=== PATIENT | male | born 1950 | race Two or more races ===

== ENCOUNTER 2020-02-06 10:10 | Inpatient (IN) | payer MEDICARE, OTHER ==
[~2020-02-06] VITALS: Ht 188 cm; Wt 83.1 kg
[2020-02-06] MEDS ORDERED: SODIUM CHLORIDE 0.9% 500 ML IV ONE (10:49)
[2020-02-06] MEDS ORDERED: AZITHROMYCIN 500MG/ 250ML 250 ML IV ONE (11:00)
[2020-02-06] MEDS ORDERED: cefTRIAXone 1GM/50ML D5W 50 ML IV ONE (11:00)
[2020-02-06 11:34] LABS: Basophils # (auto) 0 10 ^3/uL (0-0.2); Basophils % (auto) 0.1 % (0.0-2.0); Eosinophils # (auto) 0 10 ^3/uL (0-0.8); Hematocrit 44.6 % (41.0-53.0); Hemoglobin 15.2 g/dL (13.5-17.5); Lymphocytes # (auto) 1.6 10 ^3/uL (0.4-5.4); Lymphocytes % (auto) 12.1 % (10.0-50.0); Mean Corpuscular Hgb Conc. 34.2 g/dL (32.0-36.0); Mean Corpuscular Volume 87.8 fL (80.0-100.0); Monocytes # (auto) 1.4 10 ^3/uL (0-1.3); Monocytes % (auto) 10.9 % (0.0-12.0); Neutrophils # (auto) 10.2 10 ^3/uL (1.6-8.6); Neutrophils % (auto) 76.9 % (37.0-80.0); Platelet Count (auto) 144 10^3/uL (140-450); Red Blood Cells 5.08 10^6/uL (4.5-5.90); White Blood Cell 13.3 10^3/uL (4.4-10.8)
[2020-02-06 12:00] LABS: Albumin 2.8 g/dL (3.4-5.0); Calcium 11.3 mg/dL (8.5-10.1); Potassium 3.7 mmol/L (3.5-5.1)
[2020-02-06] MEDS ORDERED: ASCORBIC ACID 500 MG TAB PO ONE (12:00)
[2020-02-06] MEDS ORDERED: LORazepam 2MG/ML-1ML VIAL IV ONE (12:00)
[2020-02-06] MEDS ORDERED: ZINC SULFATE 220mg CAP or TAB PO ONE (12:00)
[2020-02-06 12:03] LABS: BUN/Creatinine Ratio 18.1; Bilirubin, Total 1.4 mg/dL (0.2-1.0); INR 1.29 (0.9-1.15); Partial Thromboplastin Time 33.6 sec (23.64-32.05); Total Protein 7.9 g/dL (6.4-8.2)
[2020-02-06] MEDS ORDERED: MORPHINE SULF INJ 2 MG/ML SYRINGE 1ML IV PRN (13:45)
[2020-02-06] MEDS ORDERED: NITROGLYCERIN 0.4 MG SL TAB SL PRN (13:45)
[2020-02-06] MEDS ORDERED: ACETAMINOPHEN 500 MG TAB PO PRN (14:00)
[2020-02-06] MEDS ORDERED: ALBUTEROL SULF 2.5 MG/0.5ML(0.5%) NEB SOLN NEB PRN (14:00)
[2020-02-06] MEDS ORDERED: PROMETHAZINE HCL 25 MG/ML 1ML IV PRN (14:00)
[2020-02-06] MEDS ORDERED: LORazepam 0.5 MG TAB PO PRN (14:00)
[2020-02-06] MEDS ORDERED: TEMAZEPAM 15 MG CAP PO PRN (14:00)
[2020-02-06] MEDS: SODIUM CHLORIDE 0.9% 1,000 ML IV SCH (14:21)
[2020-02-06 14:33] LABS: Urine Bacteria NONE SEEN /hpf (None Seen); Urine Blood Negative /uL (Negative); Urine Hyaline Cast FEW /lpf (0 - 2); Urine Mucus FEW (None Seen); Urine Specific Gravity 1.021 (1.001-1.035); Urine WBC 2 /hpf (0 - 3)
[2020-02-06] MEDS ORDERED: FUROSEMIDE 40 MG/4 ML VIAL IV ONE (15:15)
[2020-02-06] MEDS ORDERED: FUROSEMIDE 20 MG/2 ML VIAL ONE (15:16)
[2020-02-06 16:00] VITALS: BP 120/68
[2020-02-06 16:34] LABS: Magnesium 2.2 mg/dL (1.6-2.6)
[2020-02-06 17:00] VITALS: BP 116/86
[2020-02-06 18:00] VITALS: BP 105/66
[2020-02-06 20:00] VITALS: BP 110/56
[2020-02-06] MEDS ORDERED: FAMOTIDINE 20 MG TAB PO SCH (22:00)
[2020-02-06] MEDS ORDERED: APIXABAN 5 MG TAB PO SCH (22:00)
[2020-02-07] VITALS: BP 138/101
[2020-02-07] MEDS: SODIUM CHLORIDE 0.9% 1,000 ML IV SCH (03:12)
[2020-02-07 04:00] VITALS: BP 100/67
[2020-02-07] MEDS ORDERED: FUROSEMIDE 20 MG/2 ML VIAL IV SCH (06:00)
[2020-02-07 07:30] VITALS: BP 103/64
[2020-02-07] MEDS ORDERED: cefTRIAXone 1GM/50ML D5W 50 ML IV SCH (09:00)
[2020-02-07] MEDS ORDERED: ENOXAPARIN SOD 40 MG/0.4 ML SYRINGE SC SCH (10:00)
[2020-02-07] MEDS ORDERED: AZITHROMYCIN 500MG/ 250ML 250 ML IV SCH (10:00)
[2020-02-07] MEDS ORDERED: ZINC SULFATE 220mg CAP or TAB PO SCH (10:00)
[2020-02-07] MEDS ORDERED: FUROSEMIDE 20 MG/2 ML VIAL IV ONE (10:15)
[2020-02-07] MEDS ORDERED: ASPirin 81 mg TAB PO ONE (10:15)
[2020-02-07 11:05] LABS: Calcium 10.5 mg/dL (8.5-10.1); Potassium 3.4 mmol/L (3.5-5.1)
[2020-02-07 11:07] LABS: BUN/Creatinine Ratio 22.3
[2020-02-07] MEDS: HEPARIN DRIP/D5W 100UNITS/ML 250 ML IV SCH (11:08)
[2020-02-07 11:27] LABS: Basophils # (auto) 0 10 ^3/uL (0-0.2); Basophils % (auto) 0.2 % (0.0-2.0); Eosinophils # (auto) 0 10 ^3/uL (0-0.8); Eosinophils % (auto) 0.4 % (0.0-7.0); Hematocrit 41.5 % (41.0-53.0); Hemoglobin 14.2 g/dL (13.5-17.5); Lymphocytes # (auto) 1.5 10 ^3/uL (0.4-5.4); Mean Corpuscular Hgb Conc. 34.3 g/dL (32.0-36.0); Mean Corpuscular Volume 87.4 fL (80.0-100.0); Monocytes # (auto) 1.8 10 ^3/uL (0-1.3); Monocytes % (auto) 17.7 % (0.0-12.0); Neutrophils # (auto) 6.9 10 ^3/uL (1.6-8.6); Neutrophils % (auto) 66.7 % (37.0-80.0); Nucleated Red Blood Cells % 0.2 %; Platelet Count (auto) 130 10^3/uL (140-450); Red Blood Cells 4.75 10^6/uL (4.5-5.90); Red Cell Distribution Width 14.9 % (11.8-14.3); White Blood Cell 10.3 10^3/uL (4.4-10.8)
[2020-02-07 11:29] LABS: INR 1.25 (0.9-1.15); Partial Thromboplastin Time 36.5 sec (23.64-32.05)
[2020-02-07 12:00] VITALS: BP 135/79
[2020-02-07] MEDS ORDERED: POTASSIUM CHL 20 Meq TABLET PO ONE (15:15)
[2020-02-07 16:00] VITALS: BP 135/86
[2020-02-07 16:47] LABS: Urine Bacteria FEW /hpf (None Seen); Urine Blood Negative /uL (Negative); Urine Hyaline Cast FEW /lpf (0 - 2); Urine Specific Gravity 1.006 (1.001-1.035); Urine WBC <1 /hpf (0 - 3)
[2020-02-07 16:53] LABS: Protein, Urine 8.4 mg/dL (0.0-11.9)
[2020-02-07 18:20] LABS: INR 1.3 (0.9-1.15); Partial Thromboplastin Time 50.9 sec (23.64-32.05)
[2020-02-07 20:00] VITALS: BP 109/76
[2020-02-07] MEDS: ATORVASTATIN 20 MG TAB PO SCH (23:06)
[2020-02-07 23:52] LABS: INR 1.3 (0.9-1.15); Partial Thromboplastin Time 61.8 sec (23.64-32.05)
[2020-02-08] VITALS: BP 114/70
[2020-02-08] MEDS: HEPARIN DRIP/D5W 100UNITS/ML 250 ML IV SCH ×2 (03:59→18:38)
[2020-02-08 04:00] VITALS: BP 123/76
[2020-02-08 06:16] LABS: Basophils # (auto) 0.1 10 ^3/uL (0-0.2); Basophils % (auto) 0.7 % (0.0-2.0); Eosinophils # (auto) 0.2 10 ^3/uL (0-0.8); Eosinophils % (auto) 1.4 % (0.0-7.0); Hemoglobin 15.7 g/dL (13.5-17.5); Lymphocytes # (auto) 2.5 10 ^3/uL (0.4-5.4); Lymphocytes % (auto) 21.4 % (10.0-50.0); Mean Corpuscular Hemoglobin 30.3 pg (28.0-32.0); Mean Corpuscular Hgb Conc. 34.7 g/dL (32.0-36.0); Mean Corpuscular Volume 87.2 fL (80.0-100.0); Monocytes # (auto) 2.1 10 ^3/uL (0-1.3); Monocytes % (auto) 17.9 % (0.0-12.0); Neutrophils # (auto) 6.8 10 ^3/uL (1.6-8.6); Neutrophils % (auto) 58.6 % (37.0-80.0); Nucleated Red Blood Cells % 0.1 %; Platelet Count (auto) 178 10^3/uL (140-450); Red Blood Cells 5.16 10^6/uL (4.5-5.90); White Blood Cell 11.6 10^3/uL (4.4-10.8)
[2020-02-08 06:39] LABS: Albumin 2.8 g/dL (3.4-5.0); Calcium 9.9 mg/dL (8.5-10.1); Potassium 3.2 mmol/L (3.5-5.1)
[2020-02-08 06:43] LABS: BUN/Creatinine Ratio 19.3; Bilirubin, Direct 0.4 mg/dL (0-0.2); Bilirubin, Total 1.1 mg/dL (0.2-1.0); Total Protein 7.5 g/dL (6.4-8.2); Uric Acid 8.8 mg/dL (3.5-7.2)
[2020-02-08 07:51] VITALS: BP 108/66
[2020-02-08 08:24] LABS: INR 1.28 (0.9-1.15)
[2020-02-08] MEDS: cefTRIAXone 1GM/50ML D5W 50 ML IV SCH (08:40)
[2020-02-08 08:58] LABS: INR 1.28 (0.9-1.15); Partial Thromboplastin Time 59.8 sec (23.64-32.05)
[2020-02-08] MEDS: AZITHROMYCIN 500MG/ 250ML 250 ML IV SCH (09:32)
[2020-02-08] MEDS: ASPirin 81 mg TAB PO SCH (09:32)
[2020-02-08] MEDS ORDERED: POTASSIUM EFFERVESENT TAB 25 MEQ PO ONE (09:45)
[2020-02-08] MEDS ORDERED: ENOXAPARIN SOD 80 MG/0.8ML SYRINGE SC SCH (10:00)
[2020-02-08] MEDS ORDERED: FUROSEMIDE 20 MG/2 ML VIAL IV SCH (10:00)
[2020-02-08 12:00] VITALS: BP 116/80
[2020-02-08] MEDS: Ensure HIGH Protein Chocolate 8oz Bottle PO SCH ×2 (12:00→18:00)
[2020-02-08 15:58] VITALS: BP 126/80
[2020-02-08 18:34] LABS: BUN/Creatinine Ratio 22.7; Calcium 9.8 mg/dL (8.5-10.1); Potassium 3.5 mmol/L (3.5-5.1)
[2020-02-08 20:00] VITALS: BP 110/72
[2020-02-08] MEDS: ATORVASTATIN 20 MG TAB PO SCH (22:03)
[2020-02-09] VITALS: BP 96/55
[2020-02-09 04:00] VITALS: BP 137/87
[2020-02-09 04:00] LABS: Albumin 2.5 g/dL (3.4-5.0); Calcium 9.8 mg/dL (8.5-10.1); Potassium 3.3 mmol/L (3.5-5.1)
[2020-02-09 04:07] LABS: BUN/Creatinine Ratio 19.2; Bilirubin, Total 0.8 mg/dL (0.2-1.0); Total Protein 6.9 g/dL (6.4-8.2)
[2020-02-09 04:08] LABS: INR 1.25 (0.9-1.15)
[2020-02-09 04:14] LABS: Hematocrit 43.1 % (41.0-53.0); Hemoglobin 14.4 g/dL (13.5-17.5); Mean Corpuscular Hemoglobin 29.5 pg (28.0-32.0); Mean Corpuscular Hgb Conc. 33.3 g/dL (32.0-36.0); Mean Corpuscular Volume 88.5 fL (80.0-100.0); Platelet Count (auto) 176 10^3/uL (140-450); Red Blood Cells 4.87 10^6/uL (4.5-5.90); Red Cell Distribution Width 14.9 % (11.8-14.3); White Blood Cell 9.1 10^3/uL (4.4-10.8)
[2020-02-09 04:16] LABS: Basophils % (manual) 0 (0.0-2.0); Blast Cells 0; Metamyelocytes % 0; Myelocytes % 0; Promyelocytes % 0; Reactive Lymphocytes 0
[2020-02-09 04:19] LABS: Partial Thromboplastin Time 85.4 sec (23.64-32.05)
[2020-02-09 05:57] LABS: Band Neutrophils % (manual) 2; Eosinophils % (manual) 5 (0-7); Lymphocytes % (manual) 24 (10.0-50.0); Monocytes % (manual) 13 (0-12)
[2020-02-09 07:45] VITALS: BP 122/77
[2020-02-09] MEDS ORDERED: POTASSIUM CHL 20 Meq TABLET PO ONE ×2 (07:45→10:45)
[2020-02-09] MEDS: Ensure HIGH Protein Chocolate 8oz Bottle PO SCH ×3 (08:18→18:28)
[2020-02-09] MEDS: cefTRIAXone 1GM/50ML D5W 50 ML IV SCH (08:18)
[2020-02-09] MEDS: AZITHROMYCIN 500MG/ 250ML 250 ML IV SCH (10:42)
[2020-02-09] MEDS: HEPARIN DRIP/D5W 100UNITS/ML 250 ML IV SCH (10:44)
[2020-02-09 10:46] LABS: INR 1.25 (0.9-1.15); Partial Thromboplastin Time 59.8 sec (23.64-32.05)
[2020-02-09] MEDS: ASPirin 81 mg TAB PO SCH (10:46)
[2020-02-09 11:40] VITALS: BP 119/68
[2020-02-09 13:45] LABS: Free T3 1.95 pg/mL (2.3-4.2); Free T4 (Free Thyroxine) 1.05 ng/dL (0.89-1.76)
[2020-02-09 16:23] LABS: INR 1.23 (0.9-1.15); Partial Thromboplastin Time 52.9 sec (23.64-32.05)
[2020-02-09 16:58] VITALS: BP 156/85
[2020-02-09 21:43] VITALS: BP 120/74
[2020-02-09] MEDS: ATORVASTATIN 20 MG TAB PO SCH (21:51)
[2020-02-09 22:20] LABS: INR 1.22 (0.9-1.15); Partial Thromboplastin Time 51.6 sec (23.64-32.05)
[2020-02-10] MEDS: HEPARIN DRIP/D5W 100UNITS/ML 250 ML IV SCH ×2 (03:07→22:40)
[2020-02-10 05:00] VITALS: BP 118/70
[2020-02-10 05:52] LABS: Hematocrit 39.9 % (41.0-53.0); Hemoglobin 13.9 g/dL (13.5-17.5); Mean Corpuscular Hemoglobin 30.2 pg (28.0-32.0); Mean Corpuscular Hgb Conc. 34.8 g/dL (32.0-36.0); Mean Corpuscular Volume 86.9 fL (80.0-100.0); Platelet Count (auto) 191 10^3/uL (140-450); Red Blood Cells 4.59 10^6/uL (4.5-5.90); Red Cell Distribution Width 14.5 % (11.8-14.3); White Blood Cell 8.8 10^3/uL (4.4-10.8)
[2020-02-10 06:07] LABS: BUN/Creatinine Ratio 21.2; Calcium 9.7 mg/dL (8.5-10.1); Potassium 3.6 mmol/L (3.5-5.1)
[2020-02-10 06:09] LABS: Basophils % (manual) 0 (0.0-2.0); Blast Cells 0; Metamyelocytes % 0; Myelocytes % 0; Promyelocytes % 0; Reactive Lymphocytes 0
[2020-02-10 06:53] LABS: Band Neutrophils % (manual) 2; Eosinophils % (manual) 8 (0-7); Lymphocytes % (manual) 22 (10.0-50.0); Monocytes % (manual) 11 (0-12)
[2020-02-10] MEDS: Ensure HIGH Protein Chocolate 8oz Bottle PO SCH ×3 (08:00→18:00)
[2020-02-10 08:36] VITALS: BP 100/55
[2020-02-10] MEDS: cefTRIAXone 1GM/50ML D5W 50 ML IV SCH (10:09)
[2020-02-10] MEDS: ASPirin 81 mg TAB PO SCH (10:10)
[2020-02-10] MEDS: AZITHROMYCIN 500MG/ 250ML 250 ML IV SCH (10:10)
[2020-02-10 13:00] VITALS: BP 139/86
[2020-02-10 16:36] VITALS: BP 127/73
[2020-02-10 22:00] VITALS: BP 134/76
[2020-02-10] MEDS: ATORVASTATIN 20 MG TAB PO SCH (22:03)
[2020-02-10 22:30] LABS: INR 1.18 (0.9-1.15); Partial Thromboplastin Time 43.1 sec (23.64-32.05)
[2020-02-11 05:00] VITALS: BP 112/67
[2020-02-11 05:27] LABS: Hematocrit 40.4 % (41.0-53.0); Hemoglobin 13.6 g/dL (13.5-17.5); Mean Corpuscular Hemoglobin 29.6 pg (28.0-32.0); Mean Corpuscular Hgb Conc. 33.7 g/dL (32.0-36.0); Mean Corpuscular Volume 87.9 fL (80.0-100.0); Platelet Count (auto) 213 10^3/uL (140-450); Red Blood Cells 4.59 10^6/uL (4.5-5.90); Red Cell Distribution Width 14.4 % (11.8-14.3); White Blood Cell 7.6 10^3/uL (4.4-10.8)
[2020-02-11 05:43] LABS: BUN/Creatinine Ratio 21.5; Calcium 10.4 mg/dL (8.5-10.1); Potassium 3.6 mmol/L (3.5-5.1)
[2020-02-11 05:53] LABS: INR 1.15 (0.9-1.15)
[2020-02-11 06:00] LABS: Band Neutrophils % (manual) 0; Basophils % (manual) 0 (0.0-2.0); Blast Cells 0; Metamyelocytes % 0; Myelocytes % 0; Promyelocytes % 0; Reactive Lymphocytes 0
[2020-02-11 06:05] LABS: Partial Thromboplastin Time 73.5 sec (23.64-32.05)
[2020-02-11 06:59] LABS: Eosinophils % (manual) 7 (0-7); Lymphocytes % (manual) 33 (10.0-50.0); Monocytes % (manual) 11 (0-12)
[2020-02-11 08:58] VITALS: BP 118/66
[2020-02-11] MEDS: cefTRIAXone 1GM/50ML D5W 50 ML IV SCH (09:14)
[2020-02-11] MEDS: ASPirin 81 mg TAB PO SCH (09:14)
[2020-02-11] MEDS: Ensure HIGH Protein Chocolate 8oz Bottle PO SCH ×3 (09:14→18:06)
[2020-02-11] MEDS: AZITHROMYCIN 250 MG TAB PO SCH (09:15)
[2020-02-11 11:35] LABS: INR 1.18 (0.9-1.15)
[2020-02-11 11:44] LABS: Partial Thromboplastin Time 85.7 sec (23.64-32.05)
[2020-02-11] MEDS: HEPARIN DRIP/D5W 100UNITS/ML 250 ML IV SCH (11:57)
[2020-02-11 12:33] VITALS: BP 135/81
[2020-02-11 16:36] VITALS: BP 138/79
[2020-02-11 18:34] LABS: INR 1.16 (0.9-1.15); Partial Thromboplastin Time 61.8 sec (23.64-32.05)
[2020-02-11] MEDS: ATORVASTATIN 20 MG TAB PO SCH (21:44)
[2020-02-11 22:00] VITALS: BP 135/82
[2020-02-12 01:09] LABS: INR 1.15 (0.9-1.15); Partial Thromboplastin Time 64.3 sec (23.64-32.05)
[2020-02-12 04:47] VITALS: BP 136/80
[2020-02-12 06:41] LABS: INR 1.14 (0.9-1.15)
[2020-02-12 06:45] LABS: Partial Thromboplastin Time 74.4 sec (23.64-32.05)
[2020-02-12] MEDS: HEPARIN DRIP/D5W 100UNITS/ML 250 ML IV SCH ×3 (06:54→23:50)
[2020-02-12] MEDS: Ensure HIGH Protein Chocolate 8oz Bottle PO SCH ×3 (08:00→18:21)
[2020-02-12 09:00] VITALS: BP 120/71
[2020-02-12] MEDS: AZITHROMYCIN 250 MG TAB PO SCH (11:03)
[2020-02-12] MEDS: ASPirin 81 mg TAB PO SCH (11:03)
[2020-02-12 13:00] VITALS: BP 124/74
[2020-02-12 16:42] VITALS: BP 131/74
[2020-02-12 22:00] VITALS: BP 141/75
[2020-02-12] MEDS: ATORVASTATIN 20 MG TAB PO SCH (23:51)
[2020-02-13 05:00] VITALS: BP 132/78
[2020-02-13] MEDS ORDERED: MIDAZOLAM HCL 1MG/1ML-2 ML VIAL IV ONE (08:00)
[2020-02-13] MEDS ORDERED: fentaNYL CITRATE 100 MCG/2 ML VL IV ONE (08:00)
[2020-02-13] MEDS: Ensure HIGH Protein Chocolate 8oz Bottle PO SCH ×3 (08:00→17:17)
[2020-02-13] MEDS ORDERED: LIDOCAINE 2%HCL (LOCAL ANESTH.) INJ 20ML MDV ONE (08:12)
[2020-02-13 08:27] LABS: INR 1.11 (0.9-1.15); Partial Thromboplastin Time 28.1 sec (23.64-32.05)
[2020-02-13 09:00] VITALS: BP 113/76
[2020-02-13] MEDS: AZITHROMYCIN 250 MG TAB PO SCH (10:36)
[2020-02-13] MEDS: HEPARIN DRIP/D5W 100UNITS/ML 250 ML IV SCH (11:55)
[2020-02-13 13:00] VITALS: BP_SYST 120; BP_SYST 124; BP_SYST 136; BP_DIAS 59; BP_DIAS 69; BP_DIAS 74
[2020-02-13 19:04] LABS: INR 1.16 (0.9-1.15); Partial Thromboplastin Time 53.8 sec (23.64-32.05)
[2020-02-13 20:00] VITALS: BP 125/69
[2020-02-13] MEDS: traMADol HCL 50 MG TAB PO PRN (20:36)
[2020-02-13] MEDS: ATORVASTATIN 20 MG TAB PO SCH (20:36)
[2020-02-13 22:00] VITALS: BP 125/69
[2020-02-13] MEDS ORDERED: APIXABAN 5 MG TAB PO SCH (22:00)
[2020-02-14] VITALS (7 sets, daily range): BP systolic 118–139; BP diastolic 71–81
[2020-02-14] MEDS: HEPARIN DRIP/D5W 100UNITS/ML 250 ML IV SCH (00:57)
[2020-02-14 01:59] LABS: Hematocrit 40.8 % (41.0-53.0); Hemoglobin 13.8 g/dL (13.5-17.5); Mean Corpuscular Hemoglobin 29.5 pg (28.0-32.0); Mean Corpuscular Hgb Conc. 33.9 g/dL (32.0-36.0); Platelet Count (auto) 279 10^3/uL (140-450); Red Blood Cells 4.69 10^6/uL (4.5-5.90); Red Cell Distribution Width 14.4 % (11.8-14.3); White Blood Cell 8.2 10^3/uL (4.4-10.8)
[2020-02-14 02:02] LABS: Basophils % (manual) 0 (0.0-2.0); Blast Cells 0; Metamyelocytes % 0; Myelocytes % 0; Promyelocytes % 0; Reactive Lymphocytes 0
[2020-02-14 02:09] LABS: INR 1.19 (0.9-1.15)
[2020-02-14 02:13] LABS: Partial Thromboplastin Time 71.1 sec (23.64-32.05)
[2020-02-14 03:51] LABS: Band Neutrophils % (manual) 4; Eosinophils % (manual) 2 (0-7); Lymphocytes % (manual) 20 (10.0-50.0); Monocytes % (manual) 8 (0-12)
[2020-02-14] MEDS: Ensure HIGH Protein Chocolate 8oz Bottle PO SCH ×3 (07:40→17:44)
[2020-02-14 08:07] LABS: Albumin 2.7 g/dL (3.4-5.0)
[2020-02-14 08:12] LABS: BUN/Creatinine Ratio 18.7; Bilirubin, Total 0.6 mg/dL (0.2-1.0); Total Protein 7.3 g/dL (6.4-8.2)
[2020-02-14] MEDS: ATORVASTATIN 20 MG TAB PO SCH (22:18)
[2020-02-14] MEDS: LACTULOSE 20Gm/30ML SOLN PO PRN (22:18)
[2020-02-14 23:47] LABS: INR 1.17 (0.9-1.15); Partial Thromboplastin Time 65.9 sec (23.64-32.05)
[2020-02-15 05:00] VITALS: BP 132/79
[2020-02-15 05:31] LABS: Hemoglobin 14.3 g/dL (13.5-17.5); Mean Corpuscular Hemoglobin 29.4 pg (28.0-32.0); Mean Corpuscular Hgb Conc. 33.4 g/dL (32.0-36.0); Mean Corpuscular Volume 87.9 fL (80.0-100.0); Platelet Count (auto) 265 10^3/uL (140-450); Red Blood Cells 4.89 10^6/uL (4.5-5.90); Red Cell Distribution Width 14.5 % (11.8-14.3); White Blood Cell 7.4 10^3/uL (4.4-10.8)
[2020-02-15 05:46] LABS: Potassium 4.6 mmol/L (3.5-5.1)
[2020-02-15 05:51] LABS: BUN/Creatinine Ratio 22.1; Calcium 11.4 mg/dL (8.5-10.1); INR 1.16 (0.9-1.15)
[2020-02-15 05:52] LABS: Basophils % (manual) 0 (0.0-2.0); Blast Cells 0; Metamyelocytes % 0; Myelocytes % 0; Promyelocytes % 0; Reactive Lymphocytes 0
[2020-02-15 05:58] LABS: Partial Thromboplastin Time 74.4 sec (23.64-32.05)
[2020-02-15 06:43] LABS: Band Neutrophils % (manual) 4; Eosinophils % (manual) 2 (0-7); Lymphocytes % (manual) 20 (10.0-50.0); Monocytes % (manual) 18 (0-12)
[2020-02-15] MEDS: HEPARIN DRIP/D5W 100UNITS/ML 250 ML IV SCH ×3 (06:50→20:12)
[2020-02-15 08:00] VITALS: BP 112/72
[2020-02-15 08:35] VITALS: BP 112/72
[2020-02-15] MEDS: Ensure HIGH Protein Chocolate 8oz Bottle PO SCH ×3 (09:29→17:23)
[2020-02-15 11:38] LABS: INR 1.13 (0.9-1.15)
[2020-02-15 13:00] VITALS: BP 113/65
[2020-02-15 20:00] VITALS: BP 130/59
[2020-02-15 21:00] VITALS: BP 130/59
[2020-02-15] MEDS: ATORVASTATIN 20 MG TAB PO SCH (21:42)
[2020-02-15] MEDS: LACTULOSE 20Gm/30ML SOLN PO PRN (21:42)
[2020-02-16 05:00] VITALS: BP 139/81
[2020-02-16 05:40] LABS: Mean Corpuscular Hemoglobin 29.7 pg (28.0-32.0); Mean Corpuscular Volume 87.3 fL (80.0-100.0); Platelet Count (auto) 286 10^3/uL (140-450); Red Cell Distribution Width 14.6 % (11.8-14.3); White Blood Cell 7.8 10^3/uL (4.4-10.8)
[2020-02-16 05:58] LABS: Calcium 11.5 mg/dL (8.5-10.1); Potassium 4.2 mmol/L (3.5-5.1)
[2020-02-16 06:01] LABS: Band Neutrophils % (manual) 0; Basophils % (manual) 0 (0.0-2.0); Blast Cells 0; Myelocytes % 0; Promyelocytes % 0
[2020-02-16 06:02] LABS: BUN/Creatinine Ratio 19.6
[2020-02-16 06:12] LABS: INR 1.15 (0.9-1.15)
[2020-02-16 06:21] LABS: Partial Thromboplastin Time 86.8 sec (23.64-32.05)
[2020-02-16 07:52] LABS: Eosinophils % (manual) 4 (0-7); Lymphocytes % (manual) 21 (10.0-50.0); Metamyelocytes % 1; Monocytes % (manual) 13 (0-12); Reactive Lymphocytes 1
[2020-02-16 08:00] VITALS: BP 120/68
[2020-02-16 09:00] VITALS: BP 120/68
[2020-02-16] MEDS: Ensure HIGH Protein Chocolate 8oz Bottle PO SCH ×3 (09:09→18:30)
[2020-02-16 13:00] VITALS: BP 129/69
[2020-02-16 13:28] LABS: INR 1.17 (0.9-1.15); Partial Thromboplastin Time 66.4 sec (23.64-32.05)
[2020-02-16] MEDS: HEPARIN DRIP/D5W 100UNITS/ML 250 ML IV SCH ×2 (14:58→20:49)
[2020-02-16 17:00] VITALS: BP 127/74
[2020-02-16 20:04] LABS: INR 1.14 (0.9-1.15); Partial Thromboplastin Time 57.1 sec (23.64-32.05)
[2020-02-16] MEDS: LACTULOSE 20Gm/30ML SOLN PO PRN (21:15)
[2020-02-16] MEDS: ATORVASTATIN 20 MG TAB PO SCH (21:15)
[2020-02-16 22:00] VITALS: BP 162/93
[2020-02-17 02:00] VITALS: BP 159/93
[2020-02-17 02:01] LABS: INR 1.17 (0.9-1.15); Partial Thromboplastin Time 53.1 sec (23.64-32.05)
[2020-02-17] MEDS: traMADol HCL 50 MG TAB PO PRN ×2 (08:28→20:28)
[2020-02-17] MEDS: Ensure HIGH Protein Chocolate 8oz Bottle PO SCH ×3 (08:29→18:52)
[2020-02-17 09:08] VITALS: BP 116/67
[2020-02-17] MEDS: HEPARIN DRIP/D5W 100UNITS/ML 250 ML IV SCH (11:36)
[2020-02-17 13:00] VITALS: BP 127/75
[2020-02-17 17:00] VITALS: BP 142/80
[2020-02-17] MEDS: ATORVASTATIN 20 MG TAB PO SCH (20:28)
[2020-02-17] MEDS: APIXABAN 5 MG TAB PO SCH (20:29)
[2020-02-17 22:00] VITALS: BP 129/64
[2020-02-18] VITALS (7 sets, daily range): BP systolic 102–137; BP diastolic 57–90
[2020-02-18 06:07] LABS: INR 1.12 (0.9-1.15)
[2020-02-18] MEDS: Ensure HIGH Protein Chocolate 8oz Bottle PO SCH ×3 (08:19→18:15)
[2020-02-18] MEDS: APIXABAN 5 MG TAB PO SCH ×2 (10:21→21:36)
[2020-02-18] MEDS: ATORVASTATIN 20 MG TAB PO SCH (21:36)
[2020-02-18] MEDS: LACTULOSE 20Gm/30ML SOLN PO PRN (21:36)
[2020-02-19 05:00] VITALS: BP 111/66
[2020-02-19] MEDS: Ensure HIGH Protein Chocolate 8oz Bottle PO SCH ×2 (07:52→12:00)
[2020-02-19 08:00] VITALS: BP 116/75
[2020-02-19 09:30] VITALS: BP 116/75
[2020-02-19] MEDS: APIXABAN 5 MG TAB PO SCH (09:41)
[2020-02-19 14:02] VITALS: BP 125/74
[2020-02-19 14:38] VITALS: BP 103/64
== END 2020-02-19 16:18 | disposition home or self-care (01) | DRG 175 ==
LOC: EDBD 10:10 → ER 10:10 → OVERFLOW 10:11 → ICU CENTRL 15:40 → DOU IN ICU 15:45 → TELE-WESTW 02-09 14:37 → WEST WING 02-18 14:29
PROVIDERS: ADMIT Internal Medicine; ATTEND Internal Medicine
PROC: 0BBC3ZX Excision of Right Upper Lung Lobe, Percutaneous Approach, Diagnostic (ICD-10-PCS; principal; 2020-02-13)
PROC: 0W9930Z Drainage of Right Pleural Cavity with Drainage Device, Percutaneous Approach (ICD-10-PCS; 2020-02-13)
DX: I26.99 Other pulmonary embolism without acute cor pulmonale (principal); I21.A1 Myocardial infarction type 2; J18.9 Pneumonia, unspecified organism; J96.01 Acute respiratory failure with hypoxia; N17.0 Acute kidney failure with tubular necrosis; I50.41 Acute combined systolic (congestive) and diastolic (congestive) heart failure; I82.403 Acute embolism and thrombosis of unspecified deep veins of lower extremity, bilateral; J47.0 Bronchiectasis with acute lower respiratory infection; E44.0 Moderate protein-calorie malnutrition; J96.12 Chronic respiratory failure with hypercapnia; I13.0 Hypertensive heart and chronic kidney disease with heart failure and stage 1 through stage 4 chronic kidney disease, or unspecified chronic kidney disease; J93.9 Pneumothorax, unspecified; J84.10 Pulmonary fibrosis, unspecified; I95.9 Hypotension, unspecified; N18.3 Chronic kidney disease, stage 3 (moderate); I27.20 Pulmonary hypertension, unspecified; E87.6 Hypokalemia; Z83.3 Family history of diabetes mellitus; Z68.23 Body mass index [BMI] 23.0-23.9, adult; Z90.49 Acquired absence of other specified parts of digestive tract; Z79.899 Other long term (current) drug therapy; Z79.51 Long term (current) use of inhaled steroids
CPT/HCPCS: 10022; 32405; 36415; 36600; 71045; 71250; 76775; 77002; 77012; 78582; 80048; 80053; 80061; 80076; 81001; 82270; 82306; 82378; 82550; 82570; 82728; 82805; 83605; 83615; 83735; 83880; 84100; 84156; 84300; 84439; 84443; 84481; 84484; 84550; 85007; 85025; 85027; 85379; 85610; 85652; 85730; 86635; 87040; 87070; 87077; 87081; 87186; 87205; 87804; 87880; 93005; 93306; 93886; 93970; 97116; 97530; 99291; G0378; J0696; J2250

== ENCOUNTER → 2024-07-22 | Emergency (ER) | payer MEDICARE ==
[~2024-07-22] VITALS: Ht 188 cm; Wt 81.8 kg
[~2024-07-22] MED LIST: MORPHINE SULFATE 4 MG/ML SYR/VIAL IV ONE; ONDANSETRON HCL 4 MG/2 ML VIAL IV ONE; SODIUM CHLORIDE 0.9% 1,000 ML IV ONE
[2024-07-22 12:04] VITALS: BP 119/59; PULSE 64; RESP 20; O2SAT 97
== END | disposition left against medical advice (07) ==
LOC: EDUNIT# 12:03 → ER 12:04 → EDBD 12:04
DX: K62.5 Hemorrhage of anus and rectum (principal); K64.9 Unspecified hemorrhoids; I10 Essential (primary) hypertension; E11.9 Type 2 diabetes mellitus without complications; Z85.07 Personal history of malignant neoplasm of pancreas

== ENCOUNTER 2024-07-31 07:37 | Inpatient (IN) | payer MEDICARE, OTHER ==
[~2024-07-31] VITALS: Ht 188 cm; Wt 85.6 kg
[2024-07-31] MEDS ORDERED: MORPHINE SULFATE 4 MG/ML SYR/VIAL IV ONE (08:00)
[2024-07-31] MEDS ORDERED: ONDANSETRON HCL 4 MG/2 ML VIAL IV ONE (08:00)
[2024-07-31 08:21] LABS: Basophils # (auto) 0 10 ^3/uL (0-0.2); Eosinophils # (auto) 0 10 ^3/uL (0-0.8); Monocytes # (auto) 0.2 10 ^3/uL (0-1.3); Nucleated Red Blood Cells % 0.1 %; Platelet Count (auto) 86 10^3/uL (140-450); White Blood Cell 4.9 10^3/uL (4.4-10.8)
[2024-07-31 08:23] LABS: Basophils % (auto) 0.6 % (0.0-2.0); Hematocrit 18.6 % (41.0-53.0); Lymphocytes # (auto) 1.2 10 ^3/uL (0.4-5.4); Lymphocytes % (auto) 23.6 % (10.0-50.0); Mean Corpuscular Hemoglobin 31.9 pg (28.0-32.0); Mean Corpuscular Hgb Conc. 35.1 g/dL (32.0-36.0); Mean Corpuscular Volume 90.9 fL (80.0-100.0); Monocytes % (auto) 3.3 % (0.0-12.0); Neutrophils # (auto) 3.5 10 ^3/uL (1.6-8.6); Neutrophils % (auto) 71.5 % (37.0-80.0); Red Blood Cells 2.05 10^6/uL (4.5-5.90); Red Cell Distribution Width 13.3 % (11.8-14.3)
[2024-07-31 08:30] VITALS: PULSE 85; RESP 28; O2SAT 96
[2024-07-31 08:30] LABS: Hemoglobin 6.5 g/dL (13.5-17.5)
[2024-07-31 08:39] LABS: Alanine Aminotransferase 67 U/L (7-40); Alkaline Phosphatase 200 U/L (46-116); Anion Gap 11 (5-15); Aspartate Aminotransferase 36 U/L (13-40); BUN/Creatinine Ratio 41.6 (10.0-20.0); Bilirubin, Total 0.9 mg/dL (0.2-1.0); Blood Urea Nitrogen 47 mg/dL (9-23); Calcium 8.6 mg/dL (8.7-10.4); Carbon Dioxide 20 mmol/L (20-31); Chloride 105 mmol/L (98-107); Glucose 232 mg/dL (74-106); Magnesium 1.9 mg/dL (1.6-2.6); Potassium 4.1 mmol/L (3.5-5.1); Sodium 136 mmol/L (136-145); Total Protein 5.1 g/dL (5.7-8.2)
[2024-07-31 08:43] LABS: Lactic Acid w/Reflex 4.6 mmol/L (0.4-2.0)
[2024-07-31] MEDS: SODIUM CHLORIDE 0.9% 1,000 ML IV ONE (08:49)
[2024-07-31] MEDS: HYDROcodone-ACET 10/325MG TAB PO ONE (08:49)
[2024-07-31] MEDS: SODIUM CHLORIDE 0.9% 500 ML IV ONE (14:00)
[2024-07-31] MEDS: fentaNYL CITRATE 100 MCG/2 ML VL IV ONE (14:13)
[2024-07-31] MEDS ORDERED: NITROGLYCERIN 0.4 MG SL TAB SL PRN (15:45)
[2024-07-31] MEDS ORDERED: MORPHINE SULFATE INJ 2 MG/ml SYRG IV PRN (15:45)
[2024-07-31] MEDS ORDERED: DOCUSATE SOD 100 MG CAP PO PRN (15:45)
[2024-07-31] MEDS: ONDANSETRON HCL 4 MG/2 ML VIAL IV PRN (15:47)
[2024-07-31] MEDS: MORPHINE SULFATE INJ 2 MG/ml SYRG IV PRN (15:49)
[2024-07-31] MEDS: NOREPINEPHRINE 8 MG/250ML KIT 250 ML IV SCH (16:00)
[2024-07-31] MEDS: FUROSEMIDE 20 MG/2 ML VIAL IV ONE (16:21)
[2024-07-31] MEDS: IOHEXOL 350 MG/ML 100ML IJ ONE (16:25)
[2024-07-31 17:00] LABS: % Iron Saturation 35.5 % (20-55)
[2024-07-31] MEDS: PIPERACILLIN-TAZOB 3.375GM 100 ML IV ONE (17:27)
[2024-07-31] MEDS: PANTOPRAZOLE 40 MG/10 ML VIAL INJ IV ONE (17:27)
[2024-07-31] MEDS: PIPERACILLIN-TAZOB 3.375GM 100 ML IV SCH (17:29)
[2024-07-31 17:59] LABS: Ferritin 488.3 ng/mL (22-322); Folate (Folic Acid) 9.26 ng/mL (>5.38)
[2024-07-31] MEDS: FUROSEMIDE 20 MG/2 ML VIAL IV SCH (18:13)
[2024-07-31] MEDS: CALCIUM CARB 500 MG CHEW TAB PO SCH (18:14)
[2024-07-31 19:45] VITALS: PULSE 87; RESP 30; O2SAT 94
[2024-07-31 21:55] VITALS: BP 105/72; PULSE 87; RESP 21; TEMP 98.5; O2SAT 98
[2024-07-31 22:07] VITALS: BP 105/72; PULSE 87; RESP 21; TEMP 98.5; O2SAT 98
[2024-08-01] VITALS (16 sets, daily range): BP systolic 94–136; BP diastolic 43–62; PULSE 88–110; RESP 16–20; TEMP 97–98.4; O2SAT 92–100
[2024-08-01] MEDS: PANTOPRAZOLE 40 MG/10 ML VIAL INJ IV SCH (09:07)
[2024-08-01] MEDS: MORPHINE SULFATE INJ 2 MG/ml SYRG IV PRN (09:22)
[2024-08-01] MEDS: EPOETIN ALFA-EPBX 10,000 UNIT/1ML VIAL SC ONE (10:12)
[2024-08-01] MEDS ORDERED: INSLANTI SC (13:46)
[2024-08-01] MEDS ORDERED: MIDO2.5T15 PO (13:46)
[2024-08-01] MEDS ORDERED: HYDR-4902 PO (13:46)
[2024-08-01] MEDS ORDERED: INSLISPI SC (13:46)
[2024-08-01] MEDS ORDERED: ERGO500086 PO (13:46)
[2024-08-01] MEDS ORDERED: APIX5TAB PO (13:46)
[2024-08-01] MEDS ORDERED: PROC10TA6 PO (13:46)
[2024-08-01] MEDS ORDERED: FINA5TAB4 PO (13:46)
[2024-08-01] MEDS ORDERED: PANC1CAP53 PO (13:46)
[2024-08-01] MEDS ORDERED: [UNRECOGNIZED DRUG - CODE] IV (13:47)
[2024-08-01] MEDS ORDERED: ONDA-155 PO (13:47)
[2024-08-01] MEDS: LIDOCAINE HCL 5 % TOP OINT 35 GM TOP ONE (17:15)
[2024-08-01] MEDS: ONDANSETRON HCL 4 MG/2 ML VIAL IV PRN (18:16)
[2024-08-01] MEDS: ACCU-CHEK COMFORT CURVE STRIP VI SCH (18:23)
[2024-08-01] MEDS: InsuLIN REG 1unit/0.01ml Soln (100units/ml) SC SCH (18:31)
[2024-08-01] MEDS: LIDOCAINE HCL 2% TOP JELLY 5ML TOP SCH (22:50)
[2024-08-02] VITALS (11 sets, daily range): BP systolic 93–105; BP diastolic 45–56; PULSE 87–106; RESP 17–19; TEMP 97.4–98.8; O2SAT 94–99
[2024-08-02] MEDS ORDERED: FIN5T PO (08:46)
[2024-08-02] MEDS ORDERED: CHOL20002 PO (08:46)
[2024-08-02] MEDS ORDERED: SITA50TA PO (08:46)
[2024-08-02] MEDS ORDERED: LACTULOSE 20Gm/30ML SOLN PO PRN (09:45)
[2024-08-02] MEDS: IRON SUCROSE COMPLEX 100 ML IV SCH (11:38)
[2024-08-02] MEDS: LACTULOSE 20Gm/30ML SOLN PO ONE (11:38)
[2024-08-02] MEDS ORDERED: IRON SUCROSE COMPLEX 100 ML IV SCH (12:00)
[2024-08-02] MEDS: FLEET ENEMA(ADULT) 135 ML PR ONE (15:02)
[2024-08-02] MEDS: SODIUM CHLORIDE 0.9% 500 ML IV ONE (15:13)
[2024-08-02] MEDS: DOCUSATE SOD 100 MG CAP PO SCH (22:00)
[2024-08-02] MEDS: HYDROCORTISONE ACET 25 MG RECTAL SUPP PR SCH (22:00)
[2024-08-03] VITALS (10 sets, daily range): BP systolic 90–109; BP diastolic 40–60; PULSE 85–99; RESP 17–19; TEMP 97.7–98.7; O2SAT 94–98
[2024-08-03 06:16] LABS: Basophils # (auto) 0 10 ^3/uL (0-0.2); Eosinophils # (auto) 0.2 10 ^3/uL (0-0.8); Lymphocytes % (auto) 11.7 % (10.0-50.0); Platelet Count (auto) 72 10^3/uL (140-450); Red Cell Distribution Width 15.9 % (11.8-14.3)
[2024-08-03 06:19] LABS: Basophils % (auto) 0.2 % (0.0-2.0); Eosinophils % (auto) 1.3 % (0.0-7.0); Hematocrit 14.8 % (41.0-53.0); Lymphocytes # (auto) 1.5 10 ^3/uL (0.4-5.4); Mean Corpuscular Hemoglobin 32.6 pg (28.0-32.0); Mean Corpuscular Hgb Conc. 32.4 g/dL (32.0-36.0); Mean Corpuscular Volume 100.4 fL (80.0-100.0); Monocytes % (auto) 7.6 % (0.0-12.0); Neutrophils # (auto) 10.4 10 ^3/uL (1.6-8.6); Neutrophils % (auto) 79.2 % (37.0-80.0); Nucleated Red Blood Cells % 0.3 %; Red Blood Cells 1.47 10^6/uL (4.5-5.90); White Blood Cell 13.1 10^3/uL (4.4-10.8)
[2024-08-03 06:44] LABS: Hemoglobin 4.8 g/dL (13.5-17.5)
[2024-08-03 06:48] LABS: Alanine Aminotransferase 41 U/L (7-40); Albumin 2.6 g/dL (3.2-4.8); Alkaline Phosphatase 185 U/L (46-116); Anion Gap 7 (5-15); Aspartate Aminotransferase 30 U/L (13-40); BUN/Creatinine Ratio 21.7 (10.0-20.0); Blood Urea Nitrogen 26 mg/dL (9-23); Calcium 7.6 mg/dL (8.7-10.4); Carbon Dioxide 24 mmol/L (20-31); Chloride 107 mmol/L (98-107); Glucose 180 mg/dL (74-106); Potassium 3.1 mmol/L (3.5-5.1); Sodium 138 mmol/L (136-145)
[2024-08-03 06:49] LABS: Bilirubin, Total 1.1 mg/dL (0.2-1.0); Total Protein 4.5 g/dL (5.7-8.2)
[2024-08-03 07:31] LABS: Platelet Estimate Decreased
[2024-08-03 07:32] LABS: Macrocytosis Slight
[2024-08-03] MEDS: LACTULOSE 20Gm/30ML SOLN PO SCH (09:02)
[2024-08-03] MEDS: POTASSIUM CHLORIDE 40 MEQ, LIDOCAINE 1% (LOCAL ANESTH.) 4 ML in SODIUM CHL 0.9% 250 ML IV ONE (13:52)
[2024-08-03] MEDS: PIPERACILLIN-TAZOB 3.375GM 100 ML IV SCH (20:39)
[2024-08-04] VITALS (7 sets, daily range): BP systolic 92–110; BP diastolic 43–72; PULSE 72–90; RESP 19–20; TEMP 97.7–98.2; O2SAT 95–99
[2024-08-04 06:09] LABS: Basophils # (auto) 0 10 ^3/uL (0-0.2); Hematocrit 15.1 % (41.0-53.0); Platelet Count (auto) 72 10^3/uL (140-450)
[2024-08-04 06:13] LABS: Basophils % (auto) 0.3 % (0.0-2.0); Eosinophils # (auto) 0.5 10 ^3/uL (0-0.8); Eosinophils % (auto) 4.7 % (0.0-7.0); Lymphocytes # (auto) 1.5 10 ^3/uL (0.4-5.4); Lymphocytes % (auto) 14.9 % (10.0-50.0); Mean Corpuscular Hemoglobin 34.2 pg (28.0-32.0); Mean Corpuscular Hgb Conc. 33.3 g/dL (32.0-36.0); Mean Corpuscular Volume 102.6 fL (80.0-100.0); Monocytes % (auto) 10.2 % (0.0-12.0); Neutrophils % (auto) 69.9 % (37.0-80.0); Nucleated Red Blood Cells % 0.3 %; Red Blood Cells 1.47 10^6/uL (4.5-5.90)
[2024-08-04 06:24] LABS: Red Cell Distribution Width 22.7 % (11.8-14.3)
[2024-08-04 09:58] LABS: Anisocytosis Slight; Macrocytosis Slight; Platelet Estimate Decreased
[2024-08-04] MEDS ORDERED: FERR-7 PO (09:59)
[2024-08-04] MEDS ORDERED: HYDR25SU21 PR (09:59)
[2024-08-04] MEDS ORDERED: DOCU-94 PO (09:59)
[2024-08-06 05:08] LABS: Albumin 2.3 g/dL (2.9-4.4); Alpha-1-Globulin 0.3 g/dL (0.0-0.4); Alpha-2-Globulin 0.6 g/dL (0.4-1.0); Gamma Globulin 0.7 g/dL (0.4-1.8); Globulin Total 2.4 g/dL (2.2-3.9); Protein Total Serum 4.7 g/dL (6.0-8.5)
== END 2024-08-04 20:32 | disposition hospice, home (50) | DRG 871 ==
LOC: ER 07:37 → EDBD 07:37 → TELE 15:52 → TELE-EAST 21:40
PROVIDERS: ADMIT Nurse Practitioner Family; ATTEND Family Medicine
DX: A41.9 Sepsis, unspecified organism (principal); J81.0 Acute pulmonary edema; D62 Acute posthemorrhagic anemia; C25.9 Malignant neoplasm of pancreas, unspecified; E87.20 Acidosis, unspecified; E44.0 Moderate protein-calorie malnutrition; C78.7 Secondary malignant neoplasm of liver and intrahepatic bile duct; E83.51 Hypocalcemia; Z66 Do not resuscitate; Z51.5 Encounter for palliative care; K64.4 Residual hemorrhoidal skin tags; I10 Essential (primary) hypertension; I95.1 Orthostatic hypotension; E11.9 Type 2 diabetes mellitus without complications; I48.0 Paroxysmal atrial fibrillation; K57.30 Diverticulosis of large intestine without perforation or abscess without bleeding; I70.0 Atherosclerosis of aorta; N32.89 Other specified disorders of bladder; N28.1 Cyst of kidney, acquired; Z83.3 Family history of diabetes mellitus; Z83.2 Family history of diseases of the blood and blood-forming organs and certain disorders involving the immune mechanism; Z80.0 Family history of malignant neoplasm of digestive organs; Z79.01 Long term (current) use of anticoagulants; Z86.718 Personal history of other venous thrombosis and embolism; Z86.711 Personal history of pulmonary embolism; Z68.24 Body mass index [BMI] 24.0-24.9, adult; Z79.4 Long term (current) use of insulin
CPT/HCPCS: 36415; 70450; 71045; 74177; 80053; 82270; 82607; 82728; 82746; 82962; 83036; 83540; 83550; 83605; 83615; 83690; 83735; 83880; 84155; 84165; 84484; 85025; 85045; 87081; 93005; 93306; 99291; G0378; J1756; J1815; J2003; J2405; J2470; J2543